=== PATIENT | male | born 1995 | race Native Hawaiian/Other Pacific Islander ===

== ENCOUNTER 2018-03-20 23:59 | Emergency (ER) | payer OTHER ==
--- NOTE | 2018-03-21 00:30 | ED Physician Documentation ---
History of Present Illness - Stated complaint Stated Complaint: HIGH BLOOD ALCOHOL - Chief complaint Chief Complaint: General - History obtained from History obtained from: Patient, Police - History of Present Illness Timing: Today - Additonal information Additional information: Patient is a 22 year old male with a history of alcohol abuse who is presenting to the emergency department for alcohol intoxication. According to patient and police patient was pulled over and blew a .4. Even though the patient was going home due to the high etoh level he had to be evaluated by a physician. Upon initial evaluation in the emergency department patient was awake, alert and oriented. Patient was able to ambulate without difficulty and denied any complaints. Review of Systems Ten Systems: 10 systems reviewed and negative PD PAST MEDICAL HISTORY - Present Medications Home Medications: Ambulatory Orders Medication Instructions Recorded Confirmed No Known Home Medications [No 03/21/18 03/21/18 Known Home Medications] - Allergies Allergies/Adverse Reactions: Allergies Allergy/AdvReac Type Severity Reaction Status Date / Time No Known Drug Allergies Allergy Verified 03/21/18 00:06 PD ED PE NORMAL - Vitals Vital signs reviewed: Yes - General General: Alert and oriented X 3, No acute distress - HEENT HEENT: Atraumatic, Moist mucous membranes - Cardiac Cardiac: RRR - Respiratory Respiratory: No respiratory distress - Abdomen Abdomen: Non distended - Derm Derm: Normal color, Warm and dry - Extremities Extremities: No deformity - Neuro Neuro: Alert and oriented X 3, No motor deficit, Normal speech Eye Opening: Spontaneous Motor: Obeys Commands Verbal: Oriented GCS Score: 15 - Psych Psych: Normal mood Results - Vitals Vitals: Vital Signs - 24 hr 03/21/18 03/21/18 00:03 00:41 Temperature 37.0 C Heart Rate 111 H 97 Respiratory 15 16 Rate Blood Pressure 138/95 H 139/101 H O2 Saturation 98 100 Oxygen O2 Source Room air PD MEDICAL DECISION MAKING - ED course Complexity details: reviewed old records, reviewed results, re-evaluated patient , considered differential, d/w patient ED course: Patient was seen and examined at bedside. patient was well appearing and in no distress. Patient was able to ambulate without difficulty and attend to conversation. Patient required no further work up and was stable to be given a ride home with police. Departure - Departure Disposition: 01 Home, Self Care Clinical Impression: Alcohol intoxication Condition: Stable Instructions: ED Alcohol Intoxication Follow-Up: primary,care provider [Other] - Within 3 Days Comments: Your symptoms today were secondary to alcohol intoxication. You should consider inpatient rehab to help deal with your alcoholism. You may return to the emergency department at any time for new, worsening or uncontrollable symptoms. Discharge Date/Time: 03/21/18 00:42
[2018-03-21 00:43] VITALS: BP 139/101
== END 2018-03-21 00:42 | disposition home or self-care (01) ==
LOC: ED 23:59
DX: F10.129 Alcohol abuse with intoxication, unspecified (principal)
CPT/HCPCS: 99283

== ENCOUNTER 2018-05-26 15:37 | Outpatient (CLI) | payer MEDICAID | END 2018-05-26 15:38 | disposition critical access hospital (66) | LOC: EMS 15:37 | PROVIDERS: ATTEND Surgery | DX: R55 Syncope and collapse (principal); R41.0 Disorientation, unspecified | CPT/HCPCS: A0425; A0427; A0999 ==

== ENCOUNTER 2018-05-26 15:58 | Emergency (ER) | payer MEDICAID ==
--- NOTE | 2018-05-26 16:07 | ED Physician Documentation ---
History of Present Illness - Stated complaint Stated Complaint: ALOC - History obtained from History obtained from: EMS - History of Present Illness Timing: Today (Presents by ambulance, I guess a friend of his went over to his house and they were had plans to go to the beach but basically who is obtunded on his bed. 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 Patient is unable to cooperate with history today because he is minimally verbal and only somewhat responsive.) Review of Systems Unable to obtain: Confused PD PAST MEDICAL HISTORY - Present Medications Home Medications: Ambulatory Orders Medication Instructions Recorded Confirmed No Known Home Medications [No 03/21/18 03/21/18 Known Home Medications] - Allergies Allergies/Adverse Reactions: Allergies Allergy/AdvReac Type Severity Reaction Status Date / Time No Known Drug Allergies Allergy Verified 03/21/18 00:06 PD ED PE NORMAL - Vitals Vital signs reviewed: Yes - General General: Other (He awakens easily to verbal stimulus and follows simple commands but really is not saying anything to me. He does smell of alcohol.) - HEENT HEENT: Other (Large but equally reactive pupils, not following commands well enough to participate in extraocular movements. He has dry mucous membranes and poor dentition.) - Neck Neck: Supple, no meningeal sign, No bony TTP - Cardiac Cardiac: RRR, No murmur - Respiratory Respiratory: No respiratory distress, Clear bilaterally - Abdomen Abdomen: Normal bowel sounds, Soft, Non tender - Neuro Neuro: die caster 2-12 intact, No motor deficit, No sensory deficit Eye Opening: Spontaneous Motor: Obeys Commands Verbal: Incomprehensible GCS Score: 12 Results - Vitals Vitals: Vital Signs - 24 hr 05/26/18 05/26/18 05/26/18 15:59 17:50 19:38 Temperature 36.8 C Heart Rate 127 H 108 H 97 Respiratory 14 16 18 Rate Blood Pressure 124/89 H 124/90 H 113/72 O2 Saturation 98 100 Oxygen O2 Source Room air - Labs Labs: Laboratory Tests 05/26/18 05/26/18 05/26/18 16:20 16:20 16:20 WBC 9.6 RBC 4.51 L Hgb 15.3 Hct 44.6 MCV 98.9 H MCH 33.9 H MCHC 34.3 RDW 13.3 Plt Count 341 MPV 6.2 L Neut # (Auto) 3.8 Lymph # (Auto) 3.7 H Coke # (Auto) 0.5 Eos # (Auto) 1.4 H Baso # (Auto) 0.1 Absolute Nucleated RBC 0.00 Nucleated RBC % 0.0 Sodium 144 Potassium 3.6 Chloride 106 Carbon Dioxide 29 Anion Gap 9.0 BUN 12 Creatinine 0.9 Estimated GFR (MDRD) 104 Glucose 116 H Calcium 8.0 L Magnesium 2.3 Total Bilirubin 0.5 AST 82 H ALT 42 Alkaline Phosphatase 95 Total Protein 7.3 Albumin 4.0 Globulin 3.3 Albumin/Globulin Ratio 1.2 Lipase 45 TSH 0.65 Urine Color Urine Clarity Urine pH Ur Specific [place] Urine Protein Urine Glucose (UA) Urine Ketones Urine Occult Blood Urine Nitrite Urine Bilirubin Urine Urobilinogen Ur Leukocyte Esterase Ur Microscopic Review Urine Culture Comments Salicylates < 6.0 Urine Opiates Screen Ur Oxycodone Screen Urine Methadone Screen Ur Propoxyphene Screen Acetaminophen < 10 L Ur Barbiturates Screen Ur Tricyclics Screen Ur Phencyclidine Scrn Ur Amphetamine Screen U Methamphetamines Scrn U Benzodiazepines Scrn Urine Cocaine Screen U Cannabinoids Screen Ethyl Alcohol 474.9 05/26/18 17:25 WBC RBC Hgb Hct MCV MCH MCHC RDW Plt Count MPV Neut # (Auto) Lymph # (Auto) Coke # (Auto) Eos # (Auto) Baso # (Auto) Absolute Nucleated RBC Nucleated RBC % Sodium Potassium Chloride Carbon Dioxide Anion Gap BUN Creatinine Estimated GFR (MDRD) Glucose Calcium Magnesium Total Bilirubin AST ALT Alkaline Phosphatase Total Protein Albumin Globulin Albumin/Globulin Ratio Lipase TSH Urine Color LIGHT YELLOW Urine Clarity CLEAR Urine pH 6.5 Ur Specific [place] <=1.005 Urine Protein NEGATIVE Urine Glucose (UA) NEGATIVE Urine Ketones NEGATIVE Urine Occult Blood TRACE-INTA Urine Nitrite NEGATIVE Urine Bilirubin NEGATIVE Urine Urobilinogen 0.2 (NORMAL) Ur Leukocyte Esterase NEGATIVE Ur Microscopic Review NOT INDICATED Urine Culture Comments NOT INDICATED Salicylates Urine Opiates Screen NEGATIVE Ur Oxycodone Screen NEGATIVE Urine Methadone Screen NEGATIVE Ur Propoxyphene Screen NEGATIVE Acetaminophen Ur Barbiturates Screen NEGATIVE Ur Tricyclics Screen NEGATIVE Ur Phencyclidine Scrn NEGATIVE Ur Amphetamine Screen NEGATIVE U Methamphetamines Scrn NEGATIVE U Benzodiazepines Scrn NEGATIVE Urine Cocaine Screen NEGATIVE U Cannabinoids Screen NEGATIVE Ethyl Alcohol - Rads (name of study) CT Head Radiology: EMP read contemporaneously (normal) PD MEDICAL DECISION MAKING - ED course ED course: 23-year-old gentleman who is probably alcoholic with review of the chart presents by EMS for altered mental status, the only pertinent finding was a significantly elevated blood alcohol level. He was allowed to sober up in the emergency department for several hours and given IV fluids and thiamine. A family member who was sober came and picked him up and he was counseled to quit drinking. He was talking normally and ambulating without assistance on discharge. - Sepsis Event Vital Signs: Vital Signs - 24 hr 05/26/18 05/26/18 05/26/18 15:59 17:50 19:38 Temperature 36.8 C Heart Rate 127 H 108 H 97 Respiratory 14 16 18 Rate Blood Pressure 124/89 H 124/90 H 113/72 O2 Saturation 98 100 Oxygen O2 Source Room air Departure - Departure Disposition: 01 Home, Self Care Clinical Impression: Alcohol intoxication Qualifiers: Complication of substance-induced condition: with delirium Qualified Code(s): F10.921 - Alcohol use, unspecified with intoxication delirium Condition: Good Record reviewed to determine appropriate education?: Yes Instructions: ED Alcohol Intoxication Comments: STOP DRINKING ALCOHOL!!!! Call your doctor to arrange a follow-up appointment, make the next available appointment. In the interim, return anytime if worse or if new symptoms develop.
[2018-05-26] MEDS: SODIUM CHLORIDE 0.9% 1,000 ML IV ONE (16:16)
[2018-05-26 16:26] LABS: BASOPHILS # (AUTO) 0.1 10^3/uL (0.0-0.1); BASOPHILS % (AUTO) 1.2 %; EOSINOPHILS # (AUTO) 1.4 10^3/uL (0.0-0.7); EOSINOPHILS % (AUTO) 14.7 %; HGB - HEMOGLOBIN 15.3 g/dL (14.0-18.0); LYMPHOCYTES # (AUTO) 3.7 10^3/uL (1.5-3.5); LYMPHOCYTES % (AUTO) 39.1 %; MEAN CORPUSCULAR HEMOGLOBIN 33.9 pg (27.0-31.0); MEAN CORPUSCULAR HGB CONC 34.3 g/dL (32.0-36.0); MEAN CORPUSCULAR VOLUME 98.9 fL (80.0-94.0); MEAN PLATELET VOLUME 6.2 fL (7.4-11.4); MONOCYTES # (AUTO) 0.5 10^3/uL (0.0-1.0); MONOCYTES % (AUTO) 5.6 %; NEUTROPHILS # (AUTO) 3.8 10^3/uL (1.5-6.6); NEUTROPHILS % (AUTO) 39.4 %; PLT - PLATELET COUNT 341 10^3/uL (130-450); RED BLOOD COUNT 4.51 10^6/uL (4.70-6.10); RED CELL DISTRIBUTION WIDTH 13.3 % (12.0-15.0); WHITE BLOOD COUNT 9.6 x10^3/uL (4.8-10.8)
[2018-05-26] MEDS: THIAMINE INJ 100 MG in SODIUM CHLORIDE 0.9% 50 ML IV STA (16:29)
[2018-05-26 16:43] LABS: ALBUMIN/GLOBULIN RATIO 1.2 (1.0-2.2); ALKALINE PHOSPHATASE 95 IU/L (42-121); ALT ALANINE AMINOTRANSFERASE 42 IU/L (10-60); AST ASPARTATE AMINOTRANSFERASE 82 IU/L (10-42); BILIRUBIN,TOTAL 0.5 mg/dL (0.2-1.0); BUN - BLOOD UREA NITROGEN 12 mg/dL (6-20); CARBON DIOXIDE - CO2 29 mmol/L (21-32); CHLORIDE 106 mmol/L (101-111); CREATININE 0.9 mg/dL (0.6-1.2); GFR - MDRD 104 (>89); GLUCOSE 116 mg/dL (70-100); LIPASE 45 U/L (22-51); MAGNESIUM 2.3 mg/dL (1.7-2.8); SALICYLATE < 6.0 mg/dL; SODIUM 144 mmol/L (135-145); TOTAL PROTEIN 7.3 g/dL (6.7-8.2)
[2018-05-26 16:58] LABS: ACETAMINOPHEN < 10 ug/mL (10-30)
[2018-05-26 17:40] LABS: MUDS CUTOFF CONCENTRATIONS CUTOFF CONC BELOW:
[2018-05-26 17:41] LABS: BILIRUBIN,URINE NEGATIVE (NEGATIVE); GLUCOSE, URINE (UA) NEGATIVE (NEGATIVE); KETONES,URINE (UA) NEGATIVE (NEGATIVE); LEUKOCYTE ESTERASE, URINE NEGATIVE (NEGATIVE); NITRITE,URINE NEGATIVE (NEGATIVE); OCCULT BLOOD,URINE TRACE-INTA (NEGATIVE); PH,URINE 6.5 PH (5.0-7.5); PROTEIN,URINE NEGATIVE (NEGATIVE); UROBILINOGEN,URINE 0.2 (NORMAL) E.U./dL (NORMAL)
[2018-05-26 17:45] LABS: CLARITY,URINE CLEAR (CLEAR)
[2018-05-26 17:54] LABS: AMPHETAMINE SCREEN,URINE NEGATIVE (NEGATIVE); BENZODIAZEPINES SCREEN, URINE NEGATIVE (NEGATIVE); COCAINE SCREEN URINE NEGATIVE (NEGATIVE); METHADONE SCREEN, URINE NEGATIVE (NEGATIVE); METHAMPHETAMINES SCREEN, URINE NEGATIVE (NEGATIVE); OPIATE SCREEN, URINE NEGATIVE (NEGATIVE); OXYCODONE SCREEN, URINE NEGATIVE (NEGATIVE); PROPOXYPHENE SCREEN, URINE NEGATIVE (NEGATIVE); TRICYCLIC ANTIDEPRESSANT,URINE NEGATIVE (NEGATIVE)
[2018-05-26 19:39] VITALS: BP 113/72
--- NOTE | 2018-05-28 13:13 | CT Report ---
Procedure Date: 05/26/2018 Accession Number: [id number] / [id number] Procedure: CT - Head W/O CPT Code: FULL RESULT: EXAM: CT HEAD EXAM DATE: 05/26/2018 05:12 PM. CLINICAL HISTORY: Altered mental status. EtOH abuse. Confusion. COMPARISON: None. TECHNIQUE: Multiaxial CT images were obtained from the foramen magnum to the vertex. Reformats: Sagittal and coronal. IV contrast: None. In accordance with CT protocol optimization, one or more of the following dose reduction techniques were utilized for this exam: automated exposure control, adjustment of mA and/or KV based on patient size, or use of iterative reconstructive technique. FINDINGS: Parenchyma: No intraparenchymal hemorrhage, mass effect, or CT findings of evolving acute/subacute infarct. Mcbride-white differentiation is distinct. Extraaxial Spaces: Normal for age. No subdural or epidural collections identified. Ventricles: The ventricles and basal cisterns are patent. No hydrocephalus or midline shift. Sinuses and Orbits: Imaged paranasal sinuses, orbits, and mastoids show no significant abnormality. Bones: No evidence of fracture or calvarial defect. Other: The visualized superficial soft tissues are unremarkable; no hematoma or edema is evident. IMPRESSION: Normal head CT. RADIA
== END 2018-05-26 19:48 | disposition home or self-care (01) ==
LOC: EDBD → EDUNIT# → ED 15:58
DX: F10.921 Alcohol use, unspecified with intoxication delirium (principal)
CPT/HCPCS: 36415; 70450; 80053; 80306; 80307; 80320; 80329; 81003; 83690; 83735; 84443; 85025; 96365; 99284; J3411; J7040; 81001; 87086

== ENCOUNTER 2018-08-29 14:54 | Emergency (ER) | payer SELFPAY ==
[2018-08-29] MEDS ORDERED: SODIUM CHLORIDE 0.9% 1,000 ML IV ONE (16:46)
[2018-08-29] MEDS ORDERED: FOLIC ACID INJ 1 MG, THIAMINE INJ 100 MG, MAGNESIUM SULFATE 2 GM, MULTIVITAMIN 10 ML in... IV STA ×5 (16:49)
[2018-08-29 16:57] LABS: MUDS CUTOFF CONCENTRATIONS CUTOFF CONC BELOW:
[2018-08-29 17:09] LABS: AMPHETAMINE SCREEN,URINE NEGATIVE (NEGATIVE); BENZODIAZEPINES SCREEN, URINE NEGATIVE (NEGATIVE); COCAINE SCREEN URINE NEGATIVE (NEGATIVE); METHADONE SCREEN, URINE NEGATIVE (NEGATIVE); METHAMPHETAMINES SCREEN, URINE NEGATIVE (NEGATIVE); OPIATE SCREEN, URINE NEGATIVE (NEGATIVE); TRICYCLIC ANTIDEPRESSANT,URINE NEGATIVE (NEGATIVE)
[2018-08-29 17:10] LABS: OXYCODONE SCREEN, URINE NEGATIVE (NEGATIVE); PROPOXYPHENE SCREEN, URINE NEGATIVE (NEGATIVE)
--- NOTE | 2018-08-29 17:21 | XRAY Report ---
Reason: chest pain after vomiting Procedure Date: 08/29/2018 Accession Number: [id number] / [id number] Procedure: XR - Chest 2 View X-Ray CPT Code: 61197 FULL RESULT: EXAM: CHEST RADIOGRAPHY. EXAM DATE: 08/29/2018 05:10 PM. CLINICAL HISTORY: Chest pain after vomiting. COMPARISON: None. TECHNIQUE: 2 views. FINDINGS: Lungs/Pleura: No focal opacities evident. No pleural effusion. No pneumothorax. Normal volumes. Mediastinum: Heart and mediastinal contours are unremarkable. No mediastinal air. Normal caliber esophagus. Other: Mild kyphoscoliosis. Old mild wedging with irregular endplates central third of the thoracic spine with mild degenerative changes. IMPRESSION: 1. No acute cardiopulmonary abnormality. 2. Abnormal thoracic spine consistent with Scheuermann's disease, excessive athletic participation, remote injury or osteoporosis. RADIA
[2018-08-29 17:27] LABS: BASOPHILS # (AUTO) 0.1 10^3/uL (0.0-0.1); BASOPHILS % (AUTO) 1.9 %; EOSINOPHILS # (AUTO) 0.2 10^3/uL (0.0-0.7); EOSINOPHILS % (AUTO) 2.8 %; HGB - HEMOGLOBIN 15.4 g/dL (14.0-18.0); LYMPHOCYTES # (AUTO) 2.7 10^3/uL (1.5-3.5); LYMPHOCYTES % (AUTO) 46.6 %; MEAN CORPUSCULAR HEMOGLOBIN 35.3 pg (27.0-31.0); MEAN CORPUSCULAR HGB CONC 34.6 g/dL (32.0-36.0); MEAN CORPUSCULAR VOLUME 102.1 fL (80.0-94.0); MONOCYTES # (AUTO) 0.9 10^3/uL (0.0-1.0); MONOCYTES % (AUTO) 16.1 %; NEUTROPHILS # (AUTO) 1.9 10^3/uL (1.5-6.6); NEUTROPHILS % (AUTO) 32.6 %; PLT - PLATELET COUNT 59 10^3/uL (130-450); RED BLOOD COUNT 4.35 10^6/uL (4.70-6.10); RED CELL DISTRIBUTION WIDTH 14.8 % (12.0-15.0); WHITE BLOOD COUNT 5.7 x10^3/uL (4.8-10.8)
[2018-08-29 17:38] LABS: CALCIUM 9.4 mg/dL (8.5-10.3); CREATININE 0.5 mg/dL (0.6-1.2)
--- NOTE | 2018-08-29 19:09 | ED Physician Documentation ---
History of Present Illness - Stated complaint Stated Complaint: BILAT NUMBNESS IN FEET - Chief complaint Chief Complaint: General - Additonal information Additional information: hx from pt and family 23 male hx substance abuse, EtOH has done inpt rehab but did not continue with outpt care still drinking to ED today with several months of burning kerwin feet pain and numbness no fall or injury no [employer] states he sometime gets chest pain when he drinks too much and vomits no abd pain no weakness Review of Systems Constitutional: denies: Fever Cardiac: reports: Chest pain / pressure (sometimes) Respiratory: denies: Dyspnea, Cough GI: reports: Vomiting (with EtOH). denies: Abdominal Pain Musculoskeletal: denies: Neck pain, Back pain Neurologic: reports: Other (burnign pain to both feet) PD PAST MEDICAL HISTORY - Past Surgical History Past Surgical History: No - Present Medications Home Medications: Ambulatory Orders Medication Instructions Recorded Confirmed Multivit,Th Iron,Other Min 1 each PO DAILY #30 tablet 08/29/18 [Thera-M] - Allergies Allergies/Adverse Reactions: Allergies Allergy/AdvReac Type Severity Reaction Status Date / Time No Known Drug Allergies Allergy Verified 08/29/18 15:03 - Social History Does the pt smoke?: No Smoking Status: Never smoker Does the pt drink ETOH?: Yes Does the pt have substance abuse?: No - Immunizations Immunizations are current?: Yes - POLST Patient has POLST: No PD ED PE NORMAL - Vitals Vital signs reviewed: Yes - General General: Alert and oriented X 3 - HEENT HEENT: PERRL (pupils approx 6 kerwin and reactive) - Neck Neck: Supple, no meningeal sign, No bony TTP - Cardiac Cardiac: RRR - Respiratory Respiratory: No respiratory distress, Clear bilaterally - Abdomen Abdomen: Soft - Derm Derm: Normal color - Extremities Extremities: Other (no swelling redness open wounds, strong pulses) - Neuro Neuro: Alert and oriented X 3, turning sander tender 2-12 intact, No motor deficit, No sensory deficit, Other (can feel feet but states they burn) Eye Opening: Spontaneous Motor: Obeys Commands Verbal: Oriented GCS Score: 15 Results - Vitals Vitals: Vital Signs - 24 hr 08/29/18 08/29/18 15:00 19:38 Temperature 37.2 C Heart Rate 120 H 96 Respiratory 18 18 Rate Blood Pressure 133/88 H 122/78 O2 Saturation 98 98 Oxygen O2 Source Room air - Labs Labs: Laboratory Tests 08/29/18 08/29/18 08/29/18 13:15 17:17 17:17 WBC 5.7 RBC 4.35 L Hgb 15.4 Hct 44.4 MCV 102.1 H MCH 35.3 H MCHC 34.6 RDW 14.8 Plt Count 59 L MPV 8.0 Neut # (Auto) 1.9 Lymph # (Auto) 2.7 Villalba # (Auto) 0.9 Eos # (Auto) 0.2 Baso # (Auto) 0.1 Absolute Nucleated RBC 0.01 Nucleated RBC % 0.2 Sodium 138 Potassium 3.8 Chloride 96 L Carbon Dioxide 26 Anion Gap 16.0 H BUN 7 Creatinine 0.5 L Estimated GFR (MDRD) 204 Glucose 96 Calcium 9.4 Urine Opiates Screen NEGATIVE Ur Oxycodone Screen NEGATIVE Urine Methadone Screen NEGATIVE Ur Propoxyphene Screen NEGATIVE Ur Barbiturates Screen NEGATIVE Ur Tricyclics Screen NEGATIVE Ur Phencyclidine Scrn NEGATIVE Ur Amphetamine Screen NEGATIVE U Methamphetamines Scrn NEGATIVE U Benzodiazepines Scrn NEGATIVE Urine Cocaine Screen NEGATIVE U Cannabinoids Screen NEGATIVE Ethyl Alcohol 330.9 - Rads (name of study) CXR Radiology: See rad report (no acute cardiopulm abn, abnormal thoracic spine (kyphoscoliosis with mild wedging and irreg endplates central third T spine with degen changes) c/w Scheuermanns disease, excessive athletic participation, remote injury or osteoporosis) PD MEDICAL DECISION MAKING - ED course ED course: tachy but afebrile - states he is very anxious labs fine - not diabetic - BA 330 though (states just drinking half a can of high % beer a day) paresthesias 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 - maybe maybe not with thiamine def also has abn spine on CXR so perhaps a spinal problem - but favor alcoholic neuropathy has no PMD so getting thiamine levels or infusions not really possible until established will start MVI with thiamine and refer to neuro as well as [facility] to establish PMD Departure - Departure Disposition: 01 Home, Self Care Clinical Impression: Alcoholic peripheral neuropathy Condition: Good Instructions: ED Neuropathy Peripheral Follow-Up: Pina Greene MD [Physician No Access] - [facility] [Provider Group] Prescriptions: Multivit,Th Iron,Other Min [Thera-M] 1 each PO DAILY #30 tablet Discharge Date/Time: 08/29/18 19:38
[2018-08-29 19:40] VITALS: BP 122/78
== END 2018-08-29 19:38 | disposition home or self-care (01) ==
LOC: ED 14:54
DX: G62.1 Alcoholic polyneuropathy (principal)
CPT/HCPCS: 36415; 71046; 80048; 80306; 80320; 85025; 96365; 96366; 99283; J3411

== ENCOUNTER 2018-11-18 15:53 | Outpatient (CLI) | payer SELFPAY | END 2018-11-18 15:54 | disposition critical access hospital (66) | LOC: EMS 15:53 | PROVIDERS: ATTEND Surgery | DX: R46.4 Slowness and poor responsiveness (principal) | CPT/HCPCS: A0425; A0429 ==

== ENCOUNTER 2018-11-18 15:56 | Observation (INO) | payer SELFPAY ==
[2018-11-18] MEDS ORDERED: SODIUM CHLORIDE 0.9% 1,000 ML IV ONE (16:07)
[2018-11-18] MEDS ORDERED: THIAMINE 100 MG TABLET PO STA (16:07)
--- NOTE | 2018-11-18 16:10 | ED Physician Documentation ---
PD HPI ALTERED MENTAL STATUS - Stated complaint Stated Complaint: WITHDRAWL - Chief complaint Chief Complaint: Neuro - History obtained from History obtained from: Patient, Other ([facility] [employer]IOR PRODUCTION SUPERVISOR called me MARIE) - History of Present Illness Timing - onset: Other (This is a 23-year-old gent with history of alcoholism. He had been seen a couple of times in our system and had pretty high alcohol levels both times. He was admitted to senior care on November 12 and started having withdrawal symptoms on the . He was treated with benzodiazepines and clonidine. The nurse practitioner tells me that he was doing well yesterday, but today became more somnolent and having more active withdrawals again. Patient is slightly somnolent on examination and complains of alcohol withdrawals but has no overt evidence of alcohol withdrawal. His vital signs are unremarkable. He is not tremulous. He denies headache.) Review of Systems Constitutional: denies: Fever, Chills Cardiac: denies: Chest pain / pressure, Palpitations Respiratory: denies: Dyspnea, Cough GI: denies: Abdominal Pain PD PAST MEDICAL HISTORY - Past Surgical History Past Surgical History: No - Present Medications Home Medications: Ambulatory Orders Medication Instructions Recorded Confirmed RX: Multivit,Th Iron,Other Min 1 each PO DAILY #30 tablet 08/29/18 11/18/18 [Thera-M] - Allergies Allergies/Adverse Reactions: Allergies Allergy/AdvReac Type Severity Reaction Status Date / Time No Known Drug Allergies Allergy Verified 11/18/18 16:06 - Social History Does the pt smoke?: No Smoking Status: Never smoker Does the pt drink ETOH?: Yes Does the pt have substance abuse?: No - Immunizations Immunizations are current?: Yes - POLST Patient has POLST: No PD ED PE NORMAL - Vitals Vital signs reviewed: Yes - General General: Alert and oriented X 3, No acute distress, Other (He is somnolent but easily arousable) - HEENT HEENT: Other (Slightly dilated pupils but reactive, a lot of nystagmus.) - Neck Neck: Supple, no meningeal sign, No bony TTP - Cardiac Cardiac: RRR, No murmur - Respiratory Respiratory: No respiratory distress, Clear bilaterally - Abdomen Abdomen: Normal bowel sounds, Soft, Non tender - Back Back: No CVA TTP, No spinal TTP - Derm Derm: Normal color, Warm and dry - Extremities Extremities: No edema, No calf tenderness / cord - Neuro Neuro: Alert and oriented X 3, Normal speech Eye Opening: To Voice Motor: Obeys Commands Verbal: Oriented GCS Score: 14 - Psych Psych: Normal mood, Normal affect Results - Vitals Vitals: Vital Signs - 24 hr 11/18/18 11/18/18 15:59 17:21 Temperature 35.3 C L Heart Rate 55 L 64 Respiratory 16 16 Rate Blood Pressure 128/76 108/87 H O2 Saturation 100 100 Oxygen O2 Source Room air - Labs Labs: Laboratory Tests 11/18/18 11/18/18 11/18/18 16:30 16:30 16:30 WBC 5.9 RBC 3.38 L Hgb 12.1 L Hct 35.5 L MCV 105.0 H MCH 35.8 H MCHC 34.1 RDW 13.1 Plt Count 159 MPV 7.5 Neut # (Auto) 3.7 Lymph # (Auto) 1.0 L Sampson # (Auto) 1.0 Eos # (Auto) 0.2 Baso # (Auto) 0.0 Absolute Nucleated RBC 0.01 Nucleated RBC % 0.1 PT 10.6 INR 0.9 Sodium 142 Potassium 2.1 L* Chloride 104 Carbon Dioxide 29 Anion Gap 9.0 BUN 5 L Creatinine 0.6 Estimated GFR (MDRD) 166 Glucose 110 H Calcium 8.8 Total Bilirubin 1.0 AST 158 H ALT 83 H Alkaline Phosphatase 62 Total Protein 5.5 L Albumin 2.5 L Globulin 3.0 Albumin/Globulin Ratio 0.8 L Lipase 57 H Ethyl Alcohol < 5.0 - Rads (name of study) CT Head Radiology: EMP read contemporaneously (Volume loss, NAD) PD MEDICAL DECISION MAKING - ED course ED course: This is a 23-year-old gentleman who presents from senior care billed as alcohol withdrawal. However on examination he has nystagmus and is somnolent. This could be excessive sedation from the medications they were giving him in senior care, potentially Exacerbated by poor hepatic function causing limited clearance. He is found to be profoundly hypokalemic and this is repleted both IV and orally. Call the hospitalist for observation at 5 PM. Departure - Departure Disposition: ED Place in Observation Clinical Impression: Altered mental status, Hypokalemia Condition: Serious Discharge Date/Time: 11/18/18 18:31
[2018-11-18 16:40] LABS: BASOPHILS % (AUTO) 0.5 %; EOSINOPHILS # (AUTO) 0.2 10^3/uL (0.0-0.7); EOSINOPHILS % (AUTO) 3.9 %; HGB - HEMOGLOBIN 12.1 g/dL (14.0-18.0); LYMPHOCYTES % (AUTO) 16.8 %; MEAN CORPUSCULAR HEMOGLOBIN 35.8 pg (27.0-31.0); MEAN CORPUSCULAR HGB CONC 34.1 g/dL (32.0-36.0); MEAN PLATELET VOLUME 7.5 fL (7.4-11.4); NEUTROPHILS # (AUTO) 3.7 10^3/uL (1.5-6.6); NEUTROPHILS % (AUTO) 62.8 %; PLT - PLATELET COUNT 159 10^3/uL (130-450); RED BLOOD COUNT 3.38 10^6/uL (4.70-6.10); RED CELL DISTRIBUTION WIDTH 13.1 % (12.0-15.0); WHITE BLOOD COUNT 5.9 x10^3/uL (4.8-10.8)
[2018-11-18 16:56] LABS: ALBUMIN 2.5 g/dL (3.2-5.5); ALBUMIN/GLOBULIN RATIO 0.8 (1.0-2.2); ALKALINE PHOSPHATASE 62 IU/L (42-121); ALT ALANINE AMINOTRANSFERASE 83 IU/L (10-60); AST ASPARTATE AMINOTRANSFERASE 158 IU/L (10-42); BUN - BLOOD UREA NITROGEN 5 mg/dL (6-20); CALCIUM 8.8 mg/dL (8.5-10.3); CARBON DIOXIDE - CO2 29 mmol/L (21-32); CHLORIDE 104 mmol/L (101-111); CREATININE 0.6 mg/dL (0.6-1.2); GFR - MDRD 166 (>89); GLUCOSE 110 mg/dL (70-100); LIPASE 57 U/L (22-51); SODIUM 142 mmol/L (135-145); TOTAL PROTEIN 5.5 g/dL (6.7-8.2)
[2018-11-18] MEDS ORDERED: POTASSIUM BICARB 25 MEQ TABLET PO STA (16:58)
[2018-11-18] MEDS ORDERED: POTASSIUM CHLOR 10 MEQ/100 ML 10 MEQ/100 ML BAG IV ONE (16:58)
[2018-11-18] MEDS ORDERED: LACTATED RINGERS 1,000 ML IV STA (16:58)
[2018-11-18] MEDS ORDERED: ONDANSETRON 4 MG/2 ML VIAL IVP PRN (17:45)
[2018-11-18] MEDS ORDERED: SODIUM CHLORIDE FLUSH 0.9% 10 ML SYRINGE IVP PRN (17:45)
[2018-11-18] MEDS ORDERED: POTASSIUM CHLORIDE INJ 40 MEQ in SODIUM CHLORIDE 0.9% 480 ML IV ONE (17:50)
--- NOTE | 2018-11-18 17:50 | CT Report ---
Reason: altered Procedure Date: 11/18/2018 Accession Number: [id number] / [id number] Procedure: CT - Head W/O CPT Code: FULL RESULT: EXAM: CT HEAD EXAM DATE: 11/18/2018 04:57 PM. CLINICAL HISTORY: Altered. COMPARISON: HEAD W/O 05/26/2018 5:04 PM. TECHNIQUE: Multiaxial CT images were obtained from the foramen magnum to the vertex. Reformats: Sagittal and coronal. IV contrast: None. In accordance with CT protocol optimization, one or more of the following dose reduction techniques were utilized for this exam: automated exposure control, adjustment of mA and/or KV based on patient size, or use of iterative reconstructive technique. FINDINGS: Parenchyma: No intraparenchymal hemorrhage. No evidence of mass, midline shift, or CT findings of infarction. Mcbride-white differentiation is distinct. Extraaxial Spaces: Slightly more prominent volume loss compared to the prior, and more volume loss than would be expected for age. No subdural or epidural collections identified. Ventricles: Normal in size and position. Sinuses and Orbits: Imaged paranasal sinuses, orbits, and mastoids show no significant abnormality. Bones: No evidence of fracture or calvarial defect. Other: None. IMPRESSION: Slightly more prominent volume loss, and more volume loss than necessarily would be expected for patient's age. No mass-effect, midline shift, or bleed. RADIA
[2018-11-18] MEDS ORDERED: POTASSIUM CHLORIDE 20 MEQ TABLET PO STA (17:52)
[2018-11-18] MEDS ORDERED: THIAMINE INJ 100 MG in SODIUM CHLORIDE 0.9% 50 ML IV STA (18:11)
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
[2018-11-18 18:22] LABS: MUDS CUTOFF CONCENTRATIONS CUTOFF CONC BELOW:
[2018-11-18 18:25] LABS: INR 0.9 (0.8-1.2); PT - PROTHROMBIN TIME 10.6 secs (9.9-12.6)
[2018-11-18 18:31] LABS: AMPHETAMINE SCREEN,URINE NEGATIVE (NEGATIVE); BENZODIAZEPINES SCREEN, URINE POSITIVE (NEGATIVE); COCAINE SCREEN URINE NEGATIVE (NEGATIVE); METHADONE SCREEN, URINE NEGATIVE (NEGATIVE); METHAMPHETAMINES SCREEN, URINE NEGATIVE (NEGATIVE); OPIATE SCREEN, URINE NEGATIVE (NEGATIVE); OXYCODONE SCREEN, URINE NEGATIVE (NEGATIVE); PROPOXYPHENE SCREEN, URINE NEGATIVE (NEGATIVE); TRICYCLIC ANTIDEPRESSANT,URINE NEGATIVE (NEGATIVE)
[2018-11-18] MEDS ORDERED: NALOXONE 0.4 MG/ML VIAL IVP ONE (18:51)
[2018-11-18] MEDS ORDERED: SODIUM CHLORIDE FLUSH 0.9% 10 ML SYRINGE ONE (18:55)
[2018-11-18] MEDS ORDERED: POTASSIUM CHLOR 20 MEQ/100 ML 20 MEQ/100 ML BAG IV ONE ×2 (19:02→19:20)
[2018-11-18] MEDS: SODIUM CHLORIDE FLUSH 0.9% 10 ML SYRINGE IVP SCH (19:09)
[2018-11-18] MEDS ORDERED: FLUMAZENIL 0.1 MG/1 ML 5 ML MDV IVP ONE (19:35)
[2018-11-18] MEDS: SODIUM CHLORIDE 0.9% 1,000 ML IV SCH (19:48)
[2018-11-18] MEDS: FAMOTIDINE 20 MG TABLET PO SCH (21:41)
[2018-11-18] MEDS ORDERED: D5.45NS W/20 MEQ KCL 1,000 ML IV SCH (23:00)
[2018-11-19 05:13] LABS: BASOPHILS % (AUTO) 0.2 %; EOSINOPHILS # (AUTO) 0.2 10^3/uL (0.0-0.7); EOSINOPHILS % (AUTO) 5.9 %; HGB - HEMOGLOBIN 11.7 g/dL (14.0-18.0); LYMPHOCYTES # (AUTO) 1.2 10^3/uL (1.5-3.5); LYMPHOCYTES % (AUTO) 29.6 %; MEAN CORPUSCULAR HEMOGLOBIN 36.1 pg (27.0-31.0); MEAN CORPUSCULAR HGB CONC 33.9 g/dL (32.0-36.0); MEAN CORPUSCULAR VOLUME 106.4 fL (80.0-94.0); MEAN PLATELET VOLUME 7.6 fL (7.4-11.4); MONOCYTES # (AUTO) 0.7 10^3/uL (0.0-1.0); MONOCYTES % (AUTO) 16.6 %; NEUTROPHILS % (AUTO) 47.7 %; PLT - PLATELET COUNT 155 10^3/uL (130-450); RED BLOOD COUNT 3.24 10^6/uL (4.70-6.10); RED CELL DISTRIBUTION WIDTH 13.5 % (12.0-15.0); WHITE BLOOD COUNT 4.1 x10^3/uL (4.8-10.8)
[2018-11-19 05:23] LABS: ALBUMIN 2.2 g/dL (3.2-5.5); ALBUMIN/GLOBULIN RATIO 0.8 (1.0-2.2); ALKALINE PHOSPHATASE 47 IU/L (42-121); ALT ALANINE AMINOTRANSFERASE 73 IU/L (10-60); AST ASPARTATE AMINOTRANSFERASE 122 IU/L (10-42); BILIRUBIN,TOTAL 0.7 mg/dL (0.2-1.0); CALCIUM 7.6 mg/dL (8.5-10.3); CARBON DIOXIDE - CO2 25 mmol/L (21-32); CHLORIDE 109 mmol/L (101-111); CREATININE 0.4 mg/dL (0.6-1.2); GFR - MDRD 264 (>89); GLUCOSE 86 mg/dL (70-100); MAGNESIUM 1.4 mg/dL (1.7-2.8); SODIUM 145 mmol/L (135-145); TOTAL PROTEIN 4.8 g/dL (6.7-8.2)
[2018-11-19 05:24] LABS: BUN - BLOOD UREA NITROGEN < 5 mg/dL (6-20)
[2018-11-19] MEDS: SODIUM CHLORIDE 0.9% 1,000 ML IV SCH ×2 (05:53→16:04)
[2018-11-19] MEDS ORDERED: POTASSIUM CHLOR 10 MEQ/100 ML 10 MEQ/100 ML BAG IV ONE ×4 (06:36→09:30)
[2018-11-19] MEDS ORDERED: MAGNESIUM SULFATE 2 GRAM 2 GM/50 ML BAG IV ONE (07:26)
[2018-11-19] MEDS: SODIUM CHLORIDE FLUSH 0.9% 10 ML SYRINGE IVP SCH ×4 (07:44→23:41)
[2018-11-19] MEDS: ACETAMINOPHEN 325 MG TABLET PO PRN ×2 (07:57→16:24)
[2018-11-19] MEDS: FAMOTIDINE 20 MG TABLET PO SCH ×2 (07:57→21:07)
[2018-11-19] MEDS ORDERED: THIAMINE 100 MG TABLET PO SCH (09:00)
[2018-11-19] MEDS ORDERED: LORazepam 2 MG/ML VIAL IVP PRN (10:08)
[2018-11-19] MEDS ORDERED: LORazepam 1 MG TABLET PO PRN (10:08)
[2018-11-19] MEDS ORDERED: LIDOCAINE 2% URO-JET 5 ML SYRINGE UR PRN (10:11)
[2018-11-19] MEDS: PRENATAL VITAMIN TABLET PO SCH (10:12)
[2018-11-19] MEDS: THIAMINE 100 MG TABLET PO SCH (10:12)
[2018-11-19] MEDS: POLYETHYLENE GLYCOL 3350 17 GM PACKET PO SCH (10:17)
[2018-11-19 13:09] LABS: BUN - BLOOD UREA NITROGEN < 5 mg/dL (6-20); CALCIUM 7.8 mg/dL (8.5-10.3); CARBON DIOXIDE - CO2 28 mmol/L (21-32); CHLORIDE 107 mmol/L (101-111); CREATININE 0.4 mg/dL (0.6-1.2); GFR - MDRD 264 (>89); GLUCOSE 92 mg/dL (70-100); SODIUM 141 mmol/L (135-145)
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
[2018-11-19] MEDS: NS W/20 MEQ KCL 1,000 ML IV SCH (18:05)
[2018-11-19] MEDS: LORazepam 0.5 MG TABLET PO SCH (21:07)
[2018-11-20] MEDS: NS W/20 MEQ KCL 1,000 ML IV SCH ×2 (02:22→10:36)
[2018-11-20] MEDS: LORazepam 0.5 MG TABLET PO SCH ×2 (03:01→08:44)
[2018-11-20 05:47] LABS: ALBUMIN 2.4 g/dL (3.2-5.5); ALBUMIN/GLOBULIN RATIO 0.8 (1.0-2.2); ALKALINE PHOSPHATASE 50 IU/L (42-121); ALT ALANINE AMINOTRANSFERASE 68 IU/L (10-60); AST ASPARTATE AMINOTRANSFERASE 93 IU/L (10-42); BILIRUBIN,TOTAL 0.5 mg/dL (0.2-1.0); BUN - BLOOD UREA NITROGEN < 5 mg/dL (6-20); CALCIUM 7.7 mg/dL (8.5-10.3); CARBON DIOXIDE - CO2 24 mmol/L (21-32); CHLORIDE 107 mmol/L (101-111); CREATININE 0.6 mg/dL (0.6-1.2); GAMMA GLUTAMYL TRANSPEPTIDASE 345 IU/L (8-55); GFR - MDRD 166 (>89); GLUCOSE 127 mg/dL (70-100); MAGNESIUM 1.5 mg/dL (1.7-2.8); PHOSPHORUS 3.5 mg/dL (2.5-4.6); SODIUM 138 mmol/L (135-145); TOTAL PROTEIN 5.4 g/dL (6.7-8.2)
[2018-11-20 05:50] LABS: BASOPHILS % (AUTO) 0.2 %; EOSINOPHILS # (AUTO) 0.3 10^3/uL (0.0-0.7); EOSINOPHILS % (AUTO) 3.6 %; HGB - HEMOGLOBIN 11.5 g/dL (14.0-18.0); LYMPHOCYTES # (AUTO) 1.6 10^3/uL (1.5-3.5); MEAN CORPUSCULAR HGB CONC 33.5 g/dL (32.0-36.0); MEAN CORPUSCULAR VOLUME 107.2 fL (80.0-94.0); MEAN PLATELET VOLUME 7.7 fL (7.4-11.4); MONOCYTES # (AUTO) 1.5 10^3/uL (0.0-1.0); MONOCYTES % (AUTO) 17.1 %; NEUTROPHILS # (AUTO) 5.4 10^3/uL (1.5-6.6); NEUTROPHILS % (AUTO) 61.1 %; PLT - PLATELET COUNT 184 10^3/uL (130-450); RED CELL DISTRIBUTION WIDTH 13.8 % (12.0-15.0); WHITE BLOOD COUNT 8.9 x10^3/uL (4.8-10.8)
[2018-11-20] MEDS: THIAMINE 100 MG TABLET PO SCH (08:44)
[2018-11-20] MEDS: FAMOTIDINE 20 MG TABLET PO SCH (08:44)
[2018-11-20] MEDS: PRENATAL VITAMIN TABLET PO SCH (08:44)
[2018-11-20] MEDS: POLYETHYLENE GLYCOL 3350 17 GM PACKET PO SCH (08:50)
[2018-11-20] MEDS: SODIUM CHLORIDE FLUSH 0.9% 10 ML SYRINGE IVP SCH (09:22)
[2018-11-20 11:12] VITALS: BP 118/82
[2018-11-20] MEDS ORDERED: chlordiazePOXIDE 25 MG CAPSULE PO SCH (12:00)
--- NOTE | 2018-11-20 14:22 | Discharge Plan ---
Discharge Plan Disposition: 01 Home, Self Care Condition: Good Prescriptions: chlordiazePOXIDE [Librium] 25 mg PO Q6H #25 capsule Thiamine [Vitamin B-1] 100 mg PO DAILY #30 tablet Diet: Regular Activity Restrictions: Activity as Tolerated Shower Restrictions: No Additional Instructions or Follow Up instructions: You were admitted to the hospital for electrolyte abnormalities in which your potassium level was very low. You likely got this as a result of suspected diarrhea, not eating for an extended period of time and due to poor nutrition. Please seek outpatient help with your alcoholism. I have sent a prescription for Librium to try to prevent alcohol use and a thiamine supplement to help reduce brain loss from [facility] alcohol use. Please see a primary care provider within a week. No Smoking: If you smoke, Please STOP! Call for help.
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
[2018-11-21] MEDS ORDERED: MULTIVITAMIN W/MINERALS TABLET PO SCH (09:00)
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
== END 2018-11-20 15:26 | disposition home or self-care (01) ==
LOC: EDUNIT# → ED 15:56 → OBS 17:45
PROVIDERS: ADMIT Nurse Practitioner Gerontology; ATTEND Nurse Practitioner
DX: E87.6 Hypokalemia (principal); R41.82 Altered mental status, unspecified; F10.20 Alcohol dependence, uncomplicated; F32.9 Major depressive disorder, single episode, unspecified; E51.9 Thiamine deficiency, unspecified; K70.10 Alcoholic hepatitis without ascites; G62.1 Alcoholic polyneuropathy; M54.2 Cervicalgia; M43.6 Torticollis; H55.00 Unspecified nystagmus
CPT/HCPCS: 36415; 51701; 70450; 72082; 80048; 80053; 80306; 80320; 82140; 82977; 83690; 83735; 84100; 84132; 85025; 85610; 93005; 96361; 96365; 96366; 96367; 96375; 99284; 99285; A9270; G0378; J3411; J7040; J7120; J8499; 82803